=== PATIENT | male | born 2000 | race Two or more races ===

== ENCOUNTER 2020-06-28 19:34 | Emergency (ER) | payer SELFPAY ==
--- NOTE | 2020-06-28 19:49 | EDM.PDOC ---
ED HPI GENERAL MEDICAL PROBLEM - General Chief Complaint: Cardiovascular Problem Stated Complaint: HEART IS RACING, 3 DYAS WITHOUT SLEEP Time Seen by Provider: 06/28/20 19:49 Source of Information: Reports: Patient History Limitations: Reports: No Limitations - History of Present Illness INITIAL COMMENTS - FREE TEXT/NARRATIVE: Patient comes emergency department today with complaints of palpitations. This patient relates over the past 3 days it feels like his heart is racing constantly. He is anxious and nervous about his heart racing. This is not anything really new for him. He is struggled with sleeping over the past 8 months. He has been taking trazodone at bedtime to help with sleep although he only sleeps for 2 to 3 hours and then he wakes up. He has not taken his trazodone for the last 3 days and subsequently has developed these palpitation type racing heart sensation. He has had no fever or chills. No cough congestion. No weakness dizziness lightheadedness. No chest pain or shortness of breath. No fever no chills. No COVID exposure no COVID symptoms. No abdominal pain nausea or vomiting. No diarrhea. Denies any alcohol usage denies any recreational drug usage. Head Pain Score (Numeric/FACES): 7 - Related Data Allergies Allergy/AdvReac Type Severity Reaction Status Date / Time No Known Allergies Allergy Verified 06/28/20 19:44 Home Meds: Home Meds traZODone HCl [Trazodone HCl] 100 mg PO DAILY 06/28/20 [History] Past Medical History Psychiatric History: Reports: Other (See Below) Other Psychiatric History: insomnia Social & Family History - Tobacco Use Smoking Status *Q: Former Smoker Used Tobacco, but Quit: Yes Month/Year Tobacco Last Used: sep 2019 Second Hand Smoke Exposure: No - Recreational Drug Use Recreational Drug Use: No ED ROS GENERAL - Review of Systems Review Of Systems: Comprehensive ROS is negative, except as noted in HPI. ED EXAM, GENERAL - Physical Exam Exam: See Below Exam Limited By: No Limitations General Appearance: Alert, WD/WN, Anxious Eye Exam: Bilateral Eye: EOMI Ears: Normal External Exam Nose: Normal Inspection Throat/Mouth: Normal Inspection Head: Atraumatic Neck: Normal Inspection Respiratory/Chest: No Respiratory Distress, Lungs Clear, Normal Breath Sounds Cardiovascular: Normal Peripheral Pulses, Regular Rate, Rhythm, No Murmur, No Rub GI/Abdominal: Normal Bowel Sounds, Soft, Non-Tender (Male) Exam: Deferred Rectal (Males) Exam: Deferred Back Exam: Normal Inspection Extremities: Normal Inspection Neurological: Alert, Oriented, Normal Cognition, No Motor/Sensory Deficits Psychiatric: Anxious Skin Exam: Warm, Dry, Intact, Normal Color, No Rash EKG INTERPRETATION EKG Date: 06/28/20 Time: 19:42 Rhythm: NSR Rate (Beats/Min): 85 [place]: Normal P-Wave: Present QRS: Normal ST-T: Normal QT: Normal Comparison: NA - No Prior EKG Course - Vital Signs Last Recorded V/S: Last Vital Signs Temp 98.6 F 06/28/20 19:39 Pulse 82 06/28/20 19:39 Resp 18 06/28/20 19:39 BP 138/75 06/28/20 19:39 Pulse Ox 100 06/28/20 19:39 - Orders/Labs/Meds Orders: Active Orders 24 hr Category Date Time Status DRUG SCREEN URINE BIORAD [URCHEM] Stat Lab 06/28/20 19:49 Ordered DRUG SCREEN, URINE [URCHEM] Stat Lab 06/28/20 19:49 Ordered Labs: Laboratory Tests 06/28/20 06/28/20 06/28/20 Range/Units 19:49 19:50 19:50 WBC 8.3 (5.0-10.0) 10^3/uL RBC 4.83 (4.6-6.2) 10^6/uL Hgb 14.6 (14.0-18.0) g/dL Hct 41.8 (40.0-54.0) % MCV 86.5 (80-100) fL MCH 30.2 (27.0-34.0) pg MCHC 34.9 (33.0-35.0) g/dL Plt Count 247 (150-450) 10^3/uL Neut % (Auto) 62.2 (42.2-75.2) % Lymph % (Auto) 24.9 (20.5-50.1) % [place] % (Auto) 12.3 H (2-8) % Eos % (Auto) 0.4 L (1.0-3.0) % Baso % (Auto) 0.2 (0.0-1.0) % Sodium 141 (136-145) mmol/L Potassium 3.8 (3.5-5.1) mmol/L Chloride 104 (98-107) mmol/L Carbon Dioxide 29 (21-32) mmol/L Anion Gap 11.8 (7-13) mEq/L BUN 10 (7-18) mg/dL Creatinine 1.17 (0.70-1.30) mg/dL Est Cr Clr Drug Dosing 95.81 mL/min Estimated GFR (MDRD) > 60 BUN/Creatinine Ratio 8.5 (No establ ref range) Glucose 113 H (74-99) mg/dL Calcium 8.6 (8.5-10.1) mg/dL Total Bilirubin 0.3 (0.2-1.0) mg/dL AST 20 (15-37) U/L ALT 25 (16-63) U/L Alkaline Phosphatase 72 (46-116) U/L Troponin I < 0.017 (0.000-0.056) ng/mL Total Protein 7.7 (6.4-8.2) g/dL Albumin 4.1 (3.4-5.0) g/dL Globulin 3.6 Albumin/Globulin Ratio 1.1 TSH, Ultra Sensitive 0.91 (0.36-3.74) uIU/mL Urine Opiates Screen Negative (NEGATIVE) Ur Oxycodone Screen Negative (NEGATIVE) Urine Methadone Screen Negative (NEGATIVE) Ur Barbiturates Screen Negative (NEGATIVE) U Tricyclic Antidepress Negative (NEGATIVE) Ur Phencyclidine Scrn Negative (NEGATIVE) Ur Amphetamine Screen Negative (NEGATIVE) U Methamphetamines Scrn Negative (NEGATIVE) Urine MDMA Screen Negative (NEGATIVE) U Benzodiazepines Scrn Negative (NEGATIVE) Urine Cocaine Screen Negative (NEGATIVE) U Marijuana (THC) Screen Negative (NEGATIVE) Meds: Medications Discontinued Medications Generic Name Dose Route Start Last Admin Trade Name Freq PRN Reason Stop Dose Admin Lorazepam 1 mg 06/28/20 19:54 06/28/20 20:01 Ativan IVPUSH 06/28/20 19:55 1 mg ONETIME ONE Administration - Re-Assessments/Exams Free Text/Narrative Re-Assessment/Exam: 06/28/20 21:43 Patient's EKG is normal. Evaluation is unremarkable as well as a negative urine drug screen. TSH is normal. Given a milligram of Ativan with much improvement. This is really the sequelae of anxiety. Especially since he feels much better after the Ativan. 06/28/20 21:48 I went into the room to discuss the plan for discharge and the patient had eloped. He was nowhere to be found. The nursing staff was unaware of his elopement as well. He eloped and unable to review his results and discuss plan of care with the patient. Departure - Departure Time of Disposition: 21:48 Disposition: Eloped 07 Clinical Impression: Palpitations, Anxiety Forms: ED Department Discharge Additional Instructions: Unable to complete discharge plan or discussion as the patient had eloped without our knowledge during the patient visit. Sepsis Event Note (ED) - Evaluation Sepsis Screening Result: No Definite Risk - Focused Exam Vital Signs: Vital Signs Temp Pulse Resp BP Pulse Ox 06/28/20 19:39 98.6 F 82 18 138/75 100 - My Orders Last 24 Hours: My Active Orders 06/28/20 19:49 DRUG SCREEN URINE BIORAD [URCHEM] Stat DRUG SCREEN, URINE [URCHEM] Stat - Assessment/Plan Last 24 Hours: My Active Orders 06/28/20 19:49 DRUG SCREEN URINE BIORAD [URCHEM] Stat DRUG SCREEN, URINE [URCHEM] Stat
[2020-06-28] MEDS ORDERED: LORazepam 2 MG/ML SDV IVPUSH ONE (19:54)
[2020-06-28 20:23] LABS: ANION GAP 11.8 mEq/L (7-13); CHLORIDE,CL 104 mmol/L (98-107); SODIUM,NA 141 mmol/L (136-145)
== END 2020-06-28 22:00 | disposition left against medical advice (07) ==
LOC: DL.ED 19:34
DX: F41.9 Anxiety disorder, unspecified (principal); Z87.891 Personal history of nicotine dependence; Z79.899 Other long term (current) drug therapy
CPT/HCPCS: 36415; 80053; 80305-QW; 84443; 84484; 85025; 93005; 96374; 99285-25; J2060